=== PATIENT | female | born 1955 | race African-American/Black ===

== ENCOUNTER 2022-01-11 07:56 | Emergency (ER) | payer BC, MEDICAID ==
[~2022-01-11] VITALS: Ht 149.9 cm; Wt 100.0 kg
[2022-01-11] MEDS ORDERED: FLEXERIL (08:15)
[2022-01-11] MEDS ORDERED: AMLO5TAB88 PO (08:15)
[2022-01-11] MEDS ORDERED: ASPIRIN 325MG EC TABLET PO ONE (08:30)
[2022-01-11] MEDS ORDERED: ONDANSETRON HCL 4MG/2ML INJ IV ONE (10:45)
[2022-01-11] MEDS ORDERED: MORPHINE SULFATE 4 MG/ML CPJ (NOT FOR IM USE) IV ONE ×2 (10:45→12:45)
[2022-01-11 11:14] LABS: BASOPHILS % 0.3 % (0.0-2.0); EOSINOPHILS % 0.3 % (0.0-5.0); HEMATOCRIT. 39.4 % (36.0-48.0); HEMOGLOBIN. 13.4 g/dL (12.0-16.0); LYMPHOCYTES % 13.3 % (20.0-50.0); MEAN CORPUSCULAR HEMOGLOBIN 29.7 pg (28.0-32.0); MEAN CORPUSCULAR VOLUME 87.6 fL (81.0-99.0); MEAN PLATELET VOLUME 9.8 fl (7.4-10.4); MONOCYTES % 7.4 % (2.0-8.0); NEUTROPHILS % 78.7 % (40.0-76.0); PLATELET 249 x1000/uL (130-400); RED CELL DISTRIBUTION WIDTH 13.7 % (11.6-14.6)
[2022-01-11 11:39] LABS: CHLORIDE 106 mEq/L (98-107)
[2022-01-11] MEDS ORDERED: METRONIDAZOLE 500 MG PREMIX 100 ML IV ONE (12:15)
[2022-01-11] MEDS ORDERED: SODIUM CHLORIDE 0.9% 1,000 ML IV ONE (12:15)
[2022-01-11] MEDS ORDERED: CEFTRIAXONE 1 G PREMIX 50 ML IV ONE (12:15)
[2022-01-11 14:58] VITALS: BP 165/72
== END 2022-01-11 15:16 | disposition short-term general hospital (02) ==
LOC: ER 09:11
DX: K81.0 Acute cholecystitis (principal); I10 Essential (primary) hypertension; Z98.890 Other specified postprocedural states; Z20.822 Contact with and (suspected) exposure to COVID-19
CPT/HCPCS: 36415; 71045; 74176; 76700; 80053; 83690; 83880; 84484; 85025; 87040; 87426; 93005; 96365; 96366; 96368; 96375; 96376; 99285; J0696; J2270; J2405; J3490; J7030